=== PATIENT | female | born 1955 | race Caucasian/White ===

== ENCOUNTER 2017-03-24 18:11 | Inpatient (IN) ==
[2017-03-24] MEDS ORDERED: SODIUM CHLORIDE 0.9% 1,000 ML IV STA (19:00)
[2017-03-24 19:08] LABS: Basophils % 0.4 % (0.0-0.8); Eosinophils # 0.1 10*3/uL (0.0-0.87); Eosinophils % 0.5 % (0.00-10.9); Hematocrit 35.4 VOL% (35.7-47.0); Hemoglobin 11.7 GM/DL (12.0-16.0); Immature Granulocytes % 0.5 %; Immature Granulocytes Absolute 0.05 #; Lymphocytes % 21.7 % (21.3-54.2); Mean Corpuscular HGB Conc 33.1 GM/DL (32-36); Mean Corpuscular Hemoglobin 30 PG (27-34); Mean Corpuscular Volume 90.3 FL (87-102); Mean Platelet Volume 10.6 FL (9.6-12.0); Monocytes % 10.9 % (1.7-12.7); Neutrophils # 6.1 10*3/uL (1.4-7.4); Platelet Count 284 T/CUMM (130-400); Red Blood Count 3.92 MC/CUMM (3.8-5.5); Red Cell Distribution Width 14.3 % (9.3-17.3); White Blood Count 9.3 T/CUMM (4-12)
[2017-03-24 19:29] LABS: Alanine Aminotransferase 15 U/L (13-56); Albumin 2.9 G/DL (3.4-5.0); Alkaline Phosphatase 63 U/L (45-117); Amylase 23 U/L (25-115); Aspartate Amino Transferase 13 U/L (0-37); Bilirubin,Total < 0.39 MG/DL (0.2-1.0); Blood Urea Nitrogen 19 MG/DL (7-18); Calcium 8.7 MG/DL (8.5-10.1); Glucose 115 MG/DL (74-106); Osmolality,Calculated 285.1 MOS/KG (273-304); Potassium 3.8 MMOL/L (3.5-5.1); Sodium 142 MMOL/L (136-145); Total Protein 6.1 G/DL (6.4-8.3)
[2017-03-24 19:44] LABS: Lactic Acid 1.5 MMOL/L (0.4-2.0)
[2017-03-24] MEDS ORDERED: LEVOFLOXACIN 750 MG TABLET PO STA (23:57)
[2017-03-25] MEDS ORDERED: LEVOFLOXACIN 750 MG TABLET ONE (00:03)
[2017-03-25] MEDS ORDERED: LEVOFLOXACIN INJ 500 MG in PREMIX 1 EACH IV STA (00:28)
[2017-03-25] MEDS ORDERED: HYDROmorphone 2 MG/1 ML VIAL IV PRN (00:28)
[2017-03-25] MEDS: SODIUM CHLORIDE 0.9% 1,000 ML IV SCH ×4 (00:48→20:10)
[2017-03-25] MEDS ORDERED: INFLUENZA VIRUS VACCINE 0.5 ML SYRINGE IM ONE (05:53)
[2017-03-25] MEDS: PANTOPRAZOLE 40 MG TABLET PO SCH (12:12)
[2017-03-25] MEDS: FUROSEMIDE 40 MG TABLET PO SCH (15:42)
[2017-03-25] MEDS: POTASSIUM CHLORIDE 20 MEQ TABLET PO SCH (15:42)
[2017-03-25] MEDS: ALBUTEROL/IPRATROPIUM 3 ML NEB RESP TX SCH (18:13)
[2017-03-25] MEDS: ONDANSETRON 4 MG/2 ML VIAL IV PRN (23:41)
[2017-03-26] MEDS: SODIUM CHLORIDE 0.9% 1,000 ML IV SCH ×5 (01:49→20:30)
[2017-03-26] MEDS: ALBUTEROL/IPRATROPIUM 3 ML NEB RESP TX SCH ×4 (07:26→19:55)
[2017-03-26] MEDS: FUROSEMIDE 40 MG TABLET PO SCH ×2 (14:30→15:46)
[2017-03-26] MEDS: POTASSIUM CHLORIDE 20 MEQ TABLET PO SCH (15:46)
[2017-03-26] MEDS: PANTOPRAZOLE 40 MG TABLET PO SCH (15:46)
[2017-03-26] MEDS ORDERED: DEXTROSE 50% 25 GM/50 ML VIAL IV PRN (16:17)
[2017-03-26] MEDS ORDERED: GLUCAGON 1 MG VIAL IM PRN (16:17)
[2017-03-26] MEDS: INSULIN REGULAR 100 UNIT/ML SUBCUT SCH (18:58)
[2017-03-26] MEDS: predniSONE 20 MG TABLET PO SCH (20:30)
[2017-03-27] MEDS: INSULIN REGULAR 100 UNIT/ML SUBCUT SCH ×4 (00:31→18:07)
[2017-03-27 03:46] LABS: Basophils % 0.2 % (0.0-0.8); Eosinophils # 0.1 10*3/uL (0.0-0.87); Eosinophils % 0.8 % (0.00-10.9); Hemoglobin 11.4 GM/DL (12.0-16.0); Immature Granulocytes % 0.9 %; Immature Granulocytes Absolute 0.08 #; Lymphocytes % 10.9 % (21.3-54.2); Mean Corpuscular HGB Conc 31.7 GM/DL (32-36); Mean Corpuscular Hemoglobin 29 PG (27-34); Mean Corpuscular Volume 91.4 FL (87-102); Mean Platelet Volume 10.8 FL (9.6-12.0); Monocytes # 0.1 10*3/uL (0.11-0.8); Monocytes % 1.4 % (1.7-12.7); Neutrophils # 7.7 10*3/uL (1.4-7.4); Neutrophils % 85.8 % (38.7-73.9); Platelet Count 261 T/CUMM (130-400); Red Blood Count 3.94 MC/CUMM (3.8-5.5); Red Cell Distribution Width 14.2 % (9.3-17.3)
[2017-03-27 04:06] LABS: Alanine Aminotransferase 19 U/L (13-56); Alkaline Phosphatase 64 U/L (45-117); Aspartate Amino Transferase 9 U/L (0-37); Bilirubin,Total < 0.39 MG/DL (0.2-1.0); Blood Urea Nitrogen 6 MG/DL (7-18); Calcium 8.5 MG/DL (8.5-10.1); Glucose 172 MG/DL (74-106); Potassium 4.4 MMOL/L (3.5-5.1); Sodium 143 MMOL/L (136-145); Total Protein 6.2 G/DL (6.4-8.3)
[2017-03-27] MEDS: SODIUM CHLORIDE 0.9% 1,000 ML IV SCH ×3 (05:00→17:57)
[2017-03-27] MEDS: ALBUTEROL/IPRATROPIUM 3 ML NEB RESP TX SCH ×4 (07:45→19:37)
[2017-03-27 09:35] LABS: PT Patient Result 10.5 SECS
[2017-03-27] MEDS ORDERED: LIDOCAINE 2% 5 ML VIAL ONE (10:34)
[2017-03-27] MEDS ORDERED: PROPOFOL 200 MG/20 ML VIAL IV ONE (10:34)
[2017-03-27] MEDS ORDERED: LEVOFLOXACIN INJ 500 MG in PREMIX 1 EACH IV ONE (11:40)
[2017-03-27] MEDS: FUROSEMIDE 40 MG TABLET PO SCH ×2 (12:36→18:07)
[2017-03-27] MEDS: CIPROFLOXACIN INJ 400 MG in PREMIX 1 EACH IV SCH ×2 (12:48→21:00)
[2017-03-27] MEDS: POTASSIUM CHLORIDE 20 MEQ TABLET PO SCH (12:49)
[2017-03-27] MEDS: PANTOPRAZOLE 40 MG TABLET PO SCH (12:49)
[2017-03-27] MEDS: metroNIDAZOLE INJ 500 MG in PREMIX 1 EACH IV SCH ×2 (14:45→22:43)
[2017-03-27] MEDS: predniSONE 20 MG TABLET PO SCH (20:55)
[2017-03-28] MEDS: INSULIN REGULAR 100 UNIT/ML SUBCUT SCH ×4 (00:28→18:03)
[2017-03-28 03:43] LABS: Basophils % 0.2 % (0.0-0.8); Eosinophils % 0.3 % (0.00-10.9); Hematocrit 32.7 VOL% (35.7-47.0); Hemoglobin 10.5 GM/DL (12.0-16.0); Immature Granulocytes % 0.8 %; Immature Granulocytes Absolute 0.05 #; Lymphocytes # 0.7 10*3/uL (1.4-4.0); Lymphocytes % 10.1 % (21.3-54.2); Mean Corpuscular HGB Conc 32.1 GM/DL (32-36); Mean Corpuscular Hemoglobin 29 PG (27-34); Mean Corpuscular Volume 91.3 FL (87-102); Mean Platelet Volume 10.7 FL (9.6-12.0); Monocytes # 0.2 10*3/uL (0.11-0.8); Monocytes % 2.5 % (1.7-12.7); Neutrophils # 5.6 10*3/uL (1.4-7.4); Neutrophils % 86.1 % (38.7-73.9); Platelet Count 237 T/CUMM (130-400); Red Blood Count 3.58 MC/CUMM (3.8-5.5); Red Cell Distribution Width 14.5 % (9.3-17.3); White Blood Count 6.5 T/CUMM (4-12)
[2017-03-28 04:38] LABS: Albumin 2.6 G/DL (3.4-5.0); Bilirubin,Total 0.5 MG/DL (0.2-1.0); Calcium 8.2 MG/DL (8.5-10.1); Osmolality,Calculated 284.1 MOS/KG (273-304)
[2017-03-28] MEDS ORDERED: TISSUE ADHESIVE 1 EACH APPLICATOR TOP ONE (06:10)
[2017-03-28] MEDS ORDERED: LIDOCAINE 1%/EPI INJ 20 ML VIAL ONE (06:11)
[2017-03-28] MEDS: metroNIDAZOLE INJ 500 MG in PREMIX 1 EACH IV SCH (06:26)
[2017-03-28] MEDS ORDERED: PHENYLEPHRINE 1 MG/10 ML SYRINGE IV ONE (07:20)
[2017-03-28] MEDS ORDERED: PROPOFOL 200 MG/20 ML VIAL IV ONE (07:20)
[2017-03-28] MEDS ORDERED: ONDANSETRON 4 MG/2 ML VIAL ONE (07:20)
[2017-03-28] MEDS: LACTATED RINGERS 1,000 ML IV SCH ×2 (07:20→08:56)
[2017-03-28] MEDS ORDERED: ROCURONIUM 100 MG/10 ML VIAL IV ONE (07:20)
[2017-03-28] MEDS ORDERED: GLYCOPYRROLATE 0.4 MG/2 ML VIAL ONE (07:20)
[2017-03-28] MEDS ORDERED: NEOSTIGMINE 10 MG/10 ML VIAL ONE (07:20)
[2017-03-28] MEDS ORDERED: LIDOCAINE 2% 5 ML VIAL ONE (07:20)
[2017-03-28] MEDS ORDERED: KETOROLAC 30 MG/1 ML VIAL ONE (07:20)
[2017-03-28] MEDS ORDERED: DEXAMETHASONE 10 MG/1 ML VIAL ONE (07:20)
[2017-03-28] MEDS: ALBUTEROL/IPRATROPIUM 3 ML NEB RESP TX SCH ×4 (07:27→19:48)
[2017-03-28] MEDS: FUROSEMIDE 40 MG TABLET PO SCH ×3 (08:00→17:33)
[2017-03-28] MEDS: PANTOPRAZOLE 40 MG TABLET PO SCH (09:00)
[2017-03-28] MEDS: POTASSIUM CHLORIDE 20 MEQ TABLET PO SCH (09:00)
[2017-03-28] MEDS: HYDROmorphone 2 MG/1 ML VIAL IV PRN ×3 (09:20→09:30)
[2017-03-28] MEDS ORDERED: ONDANSETRON 4 MG/2 ML VIAL IV PRN (09:20)
[2017-03-28] MEDS ORDERED: ePHEDrine 50 MG/ML AMP ONE (10:47)
[2017-03-28] MEDS ORDERED: MIDAZOLAM 2 MG/2 ML VIAL ONE (10:47)
[2017-03-28] MEDS ORDERED: SEVOFLURANE 1 UNIT/15 MINUTE INH ONE (10:47)
[2017-03-28] MEDS ORDERED: LACTATED RINGERS 1,000 ML IV ONE (10:47)
[2017-03-28] MEDS ORDERED: ACETAMINOPHEN 1,000 MG/100 ML VIAL IV ONE (10:47)
[2017-03-28] MEDS ORDERED: fentaNYL 100 MCG/2 ML VIAL ONE (10:47)
[2017-03-28] MEDS ORDERED: POTASSIUM CHLORIDE 20 MEQ TABLET PO SCH (11:32)
[2017-03-28] MEDS ORDERED: ALBUTEROL 2.5 MG/3 ML NEB RESP TX PRN (15:00)
[2017-03-28] MEDS ORDERED: ALBUTEROL/IPRATROPIUM 3 ML NEB RESP TX SCH (15:00)
[2017-03-28] MEDS: predniSONE 20 MG TABLET PO SCH (21:39)
[2017-03-28] MEDS: SODIUM CHLORIDE 0.9% 1,000 ML IV SCH ×2 (22:19→22:37)
[2017-03-28] MEDS: CIPROFLOXACIN INJ 400 MG in PREMIX 1 EACH IV SCH (22:21)
[2017-03-28] MEDS: ONDANSETRON 4 MG/2 ML VIAL IV PRN (22:37)
[2017-03-29] MEDS: INSULIN REGULAR 100 UNIT/ML SUBCUT SCH ×4 (00:03→17:11)
[2017-03-29 05:01] LABS: Hemoglobin 10.1 GM/DL (12.0-16.0); Immature Granulocytes % 0.5 %; Immature Granulocytes Absolute 0.05 #; Lymphocytes # 0.7 10*3/uL (1.4-4.0); Lymphocytes % 7.6 % (21.3-54.2); Mean Corpuscular HGB Conc 31.6 GM/DL (32-36); Mean Corpuscular Hemoglobin 29 PG (27-34); Mean Corpuscular Volume 92.2 FL (87-102); Mean Platelet Volume 10.9 FL (9.6-12.0); Monocytes # 0.3 10*3/uL (0.11-0.8); Monocytes % 3.5 % (1.7-12.7); Neutrophils # 8.1 10*3/uL (1.4-7.4); Neutrophils % 88.4 % (38.7-73.9); Platelet Count 224 T/CUMM (130-400); Red Blood Count 3.47 MC/CUMM (3.8-5.5); Red Cell Distribution Width 14.8 % (9.3-17.3); White Blood Count 9.2 T/CUMM (4-12)
[2017-03-29 05:40] LABS: Albumin 2.5 G/DL (3.4-5.0); Bilirubin,Direct 0.15 MG/DL (0.0-0.20); Bilirubin,Total 0.5 MG/DL (0.2-1.0); Calcium 8.1 MG/DL (8.5-10.1); Osmolality,Calculated 284.3 MOS/KG (273-304); Potassium 4.5 MMOL/L (3.5-5.1); Total Protein 5.5 G/DL (6.4-8.3)
[2017-03-29] MEDS: SODIUM CHLORIDE 0.9% 1,000 ML IV SCH ×2 (06:43→14:48)
[2017-03-29] MEDS: ALBUTEROL/IPRATROPIUM 3 ML NEB RESP TX SCH ×4 (07:21→19:18)
[2017-03-29] MEDS: FUROSEMIDE 40 MG TABLET PO SCH ×4 (09:36→17:03)
[2017-03-29] MEDS: POTASSIUM CHLORIDE 20 MEQ TABLET PO SCH (09:37)
[2017-03-29] MEDS: PANTOPRAZOLE 40 MG TABLET PO SCH (09:37)
[2017-03-29] MEDS: predniSONE 20 MG TABLET PO SCH (21:13)
[2017-03-30] MEDS: INSULIN REGULAR 100 UNIT/ML SUBCUT SCH ×4 (01:15→19:49)
[2017-03-30] MEDS: SODIUM CHLORIDE 0.9% 1,000 ML IV SCH (03:53)
[2017-03-30] MEDS: ALBUTEROL/IPRATROPIUM 3 ML NEB RESP TX SCH ×4 (08:12→19:50)
[2017-03-30] MEDS: FUROSEMIDE 40 MG TABLET PO SCH ×4 (08:35→17:00)
[2017-03-30] MEDS: POTASSIUM CHLORIDE 20 MEQ TABLET PO SCH (08:35)
[2017-03-30] MEDS: PANTOPRAZOLE 40 MG TABLET PO SCH (08:35)
[2017-03-30] MEDS: predniSONE 20 MG TABLET PO SCH (20:49)
[2017-03-31] MEDS: INSULIN REGULAR 100 UNIT/ML SUBCUT SCH ×4 (00:35→18:57)
[2017-03-31] MEDS: ALBUTEROL/IPRATROPIUM 3 ML NEB RESP TX SCH ×4 (07:56→19:23)
[2017-03-31] MEDS: FUROSEMIDE 40 MG TABLET PO SCH ×4 (09:45→17:59)
[2017-03-31] MEDS: PANTOPRAZOLE 40 MG TABLET PO SCH (09:45)
[2017-03-31] MEDS: POTASSIUM CHLORIDE 20 MEQ TABLET PO SCH (09:46)
[2017-03-31] MEDS: predniSONE 20 MG TABLET PO SCH (20:03)
[2017-04-01] MEDS: INSULIN REGULAR 100 UNIT/ML SUBCUT SCH ×4 (01:13→18:22)
[2017-04-01] MEDS: ALBUTEROL/IPRATROPIUM 3 ML NEB RESP TX SCH ×4 (08:06→20:16)
[2017-04-01] MEDS: POTASSIUM CHLORIDE 20 MEQ TABLET PO SCH (09:05)
[2017-04-01] MEDS: FUROSEMIDE 40 MG TABLET PO SCH ×4 (09:06→17:51)
[2017-04-01] MEDS: PANTOPRAZOLE 40 MG TABLET PO SCH (09:07)
[2017-04-01] MEDS: predniSONE 20 MG TABLET PO SCH (20:45)
[2017-04-02] MEDS: INSULIN REGULAR 100 UNIT/ML SUBCUT SCH ×5 (00:50→23:54)
[2017-04-02] MEDS: ALBUTEROL/IPRATROPIUM 3 ML NEB RESP TX SCH ×5 (07:15→22:50)
[2017-04-02] MEDS: PANTOPRAZOLE 40 MG TABLET PO SCH (10:04)
[2017-04-02] MEDS: FUROSEMIDE 40 MG TABLET PO SCH ×4 (10:04→16:59)
[2017-04-02] MEDS: POTASSIUM CHLORIDE 20 MEQ TABLET PO SCH (10:04)
[2017-04-02] MEDS: predniSONE 20 MG TABLET PO SCH (21:28)
[2017-04-03] MEDS: INSULIN REGULAR 100 UNIT/ML SUBCUT SCH ×3 (06:18→18:15)
[2017-04-03] MEDS: ALBUTEROL/IPRATROPIUM 3 ML NEB RESP TX SCH ×4 (07:18→19:45)
[2017-04-03] MEDS: POTASSIUM CHLORIDE 20 MEQ TABLET PO SCH (08:40)
[2017-04-03] MEDS: PANTOPRAZOLE 40 MG TABLET PO SCH (08:40)
[2017-04-03] MEDS: FUROSEMIDE 40 MG TABLET PO SCH ×4 (08:40→15:35)
[2017-04-03] MEDS: predniSONE 20 MG TABLET PO SCH (20:26)
[2017-04-04] MEDS: INSULIN REGULAR 100 UNIT/ML SUBCUT SCH ×2 (00:25→06:03)
[2017-04-04] MEDS: ALBUTEROL/IPRATROPIUM 3 ML NEB RESP TX SCH ×2 (07:25→11:05)
[2017-04-04] MEDS: FUROSEMIDE 40 MG TABLET PO SCH ×2 (08:18→09:18)
[2017-04-04] MEDS: POTASSIUM CHLORIDE 20 MEQ TABLET PO SCH (09:19)
[2017-04-04] MEDS: PANTOPRAZOLE 40 MG TABLET PO SCH (09:20)
[2017-04-04 12:25] VITALS: BP 119/54
== END 2017-04-04 13:10 | disposition home or self-care (01) | DRG 418 ==
LOC: N.ED 18:11 → N.EDINP 23:47 → N.3E 03-25 00:01
PROVIDERS: ADMIT Surgery; ATTEND Surgery
PROC: ERCPWSP (ICD-10-PCS; 2017-03-27 10:05)
PROC: LAPCHOL (2017-03-28 07:20)